=== PATIENT | female | born 1995 | race African-American/Black ===

== ENCOUNTER 2016-11-15 20:50 | Emergency (ER) | payer OTHER ==
[2016-11-15] MEDS ORDERED: Ondansetron INJ* 2 MG/ML VIAL IV ONE (21:42)
[2016-11-15] MEDS ORDERED: Pantoprazole IV* 40 MG IV ONE (21:42)
[2016-11-15] MEDS ORDERED: NS 0.9% 1000 ML* 2,000 ML IV ONE (21:42)
[2016-11-15 22:22] LABS: ALT 20 U/L (7-52); AST 17 U/L (13-39); Albumin 5.1 g/dL (3.2-5.2); Alkaline Phosphatase 88 U/L (34-104); Amylase 71 U/L (29-103); Anion Gap 8 mmol/L (2-11); BUN/Creatinine Ratio 15.1 (8-20); Blood Urea Nitrogen 11 mg/dL (6-24); C Reactive Protein < 1.00 mg/L (< 5.00); CO2 Carbon Dioxide 25 mmol/L (22-32); Calcium 10.1 mg/dL (8.6-10.3); Chloride 103 mmol/L (101-111); EGFR African American 130.7 (>60); EGFR Non-African American 101.6 (>60); Globulin 2.8 g/dL (2-4); Glucose 102 mg/dL (70-100); Lipase 20 U/L (11.0-82.0); Potassium 3.8 mmol/L (3.5-5.0); Sodium 136 mmol/L (133-145); Total Protein 7.9 g/dL (6.4-8.9)
[2016-11-15 22:39] LABS: Hematocrit 43 % (35-47); Mean Corpuscular HGB Conc 32 g/dl (31-36); Mean Corpuscular Hemoglobin 28 pg (27-31); Mean Corpuscular Volume 88 fL (80-97); Mean Platelet Volume 9 um3 (7.4-10.4); Red Blood Count 4.95 10^6/ul (4.0-5.4); Red Cell Distribution Width 15 % (10.5-15); White Blood Count 13.7 10^3/ul (3.5-10.8)
[2016-11-15 23:39] LABS: Urine Bilirubin Negative (Negative); Urine Glucose Negative (Negative); Urine Nitrite Negative (Negative)
[2016-11-16] MEDS ORDERED: Ondansetron ODT TAB* 4 MG PO ONE ×2 (00:09→00:12)
[2016-11-16 00:56] VITALS: BP 122/60
--- NOTE | 2016-11-16 01:13 | ED ---
Mark Gaffney Rebecca, scribed for Isaac Curtis MD on 11/15/16 at 2140 . Abdominal Pain/Female - HPI Summary HPI Summary: Pt is a 21 y/o F who presents to ED c/o diffuse abdominal pain. Sx began suddenly at 1700 today and is diffuse, particularly in the umbilical region. Pain is currently moderate, ranked 6/10 and characterized as cramping. Sx aggravated by movement including movement of the car while en route to [facility] and alleviated by nothing. Additionally c/o vomiting with episodes about every 15-20 minutes. Emesis contains streaks of blood and was previously food product and is now yellow. Denies diarrhea, fever, chills and rhinorrhea. No recent sick contact. Pt was in [facility] for 1.5 weeks in September of this summer. - History of Current Complaint Chief Complaint: EDAbdPain Stated Complaint: VOMITING Time Seen by Provider: 11/15/16 21:27 Hx Obtained From: Patient Onset/Duration: Sudden Onset, Still Present Severity Currently: Moderate Pain Intensity: 6 Pain Scale Used: 0-10 Numeric Location: Diffuse Character: Cramping Aggravating Factor(s): Movement Alleviating Factor(s): Nothing Associated Signs and Symptoms: Positive: Vomiting - with streaks of emesis. Negative: Fever, Diarrhea Allergies/Adverse Reactions: Allergies Allergy/AdvReac Type Severity Reaction Status Date / Time No Known Allergies Allergy Verified 11/15/16 20:53 PMH/Surg Hx/FS Hx/Imm Hx Previously Healthy: Yes Cardiovascular History: Denies: Hx Hypertension Respiratory History: Denies: Hx Asthma Infectious Disease History: No Infectious Disease History: Denies: Traveled Outside the [place] in Last 30 Days - Family History Known Family History: Positive: Hypertension Negative: Diabetes - Social History Occupation: Student Lives: Dormitory/Roommates Alcohol Use: None Substance Use Type: Reports: None Smoking Status (MU): Never Smoked Tobacco Review of Systems Negative: Fever, Chills Negative: Nasal Discharge Positive: Abdominal Pain, Vomiting. Negative: Diarrhea All Other Systems Reviewed And Are Negative: Yes Physical Exam - Summary Physical Exam Summary: The patient is well-nourished and uncomfortable. The skin is warm and dry and skin color reflects adequate perfusion. She has good skin turgor. HEENT: The head is normocephalic and atraumatic. The pupils are equal and reactive. The conjunctivae are clear and without drainage. Nares are patent and without drainage. Mouth reveals slightly dry oral mucous membranes and the throat is without erythema and exudate. The external ears are intact. The ear canals are patent and without drainage. The tympanic membranes are intact. Neck is supple with full range of motion and non-tender. Respiratory: Chest is non-tender. Lungs are clear to auscultation and breath sounds are symmetrical and equal. Cardiovascular: Hear is regular rhythm and tachycardic. There is no murmur or rub auscultated. There is no peripheral edema and pulses are symmetrical and equal. Abdomen: The abdomen is soft with generalized tenderness but no localized pain. She exhibits no guarding and no rebound. There are normal bowel sounds heard in all four quadrants and there is no organomegaly palpated. Musculoskeletal: There is no back pain noted. Extremities are non-tender with full range of motion. There is good capillary refill. There is no peripheral edema or calf tenderness elicited. Neurological: Patient is alert and oriented to person, place and time. The patient has symmetrical motor strength in all four extremities. Psychiatric: The patient has an appropriate affect and does not exhibit any anxiety or depression. Triage Information Reviewed: Yes Vital Signs On Initial Exam: Initial Vitals Temp Pulse Resp BP Pulse Ox 98.3 F 96 16 136/75 98 11/15/16 20:54 11/15/16 20:54 11/15/16 20:54 11/15/16 20:54 11/15/16 20:54 Vital Signs Reviewed: Yes - Stanley Coma Scale Coma Scale Total: 15 Diagnostics - Vital Signs Vital Signs Temp Pulse Resp BP Pulse Ox 11/15/16 21:04 86 100 11/15/16 21:03 125/69 11/15/16 20:54 98.3 F 96 16 136/75 98 - Laboratory Lab Results: Lab Results 11/15/16 11/15/16 11/15/16 Range/Units 21:57 21:57 21:57 WBC 13.7 H (3.5-10.8) 10^3/ul RBC 4.95 (4.0-5.4) 10^6/ul Hgb 14.0 (12.0-16.0) g/dl Hct 43 (35-47) % MCV 88 (80-97) fL MCH 28 (27-31) pg MCHC 32 (31-36) g/dl RDW 15 (10.5-15) % Plt Count 230 (150-450) 10^3/ul MPV 9 (7.4-10.4) um3 Neut % (Auto) 86.1 H (38-83) % Lymph % (Auto) 8.9 L (25-47) % Pitt % (Auto) 4.8 (1-9) % Eos % (Auto) 0.1 (0-6) % Baso % (Auto) 0.1 (0-2) % Absolute Neuts (auto) 11.8 H (1.5-7.7) 10^3/ul Absolute Lymphs (auto) 1.2 (1.0-4.8) 10^3/ul Absolute Monos (auto) 0.7 (0-0.8) 10^3/ul Absolute Eos (auto) 0 (0-0.6) 10^3/ul Absolute Basos (auto) 0 (0-0.2) 10^3/ul Absolute Nucleated RBC 0.01 10^3/ul Nucleated RBC % 0 Sodium 136 (133-145) mmol/L Potassium 3.8 (3.5-5.0) mmol/L Chloride 103 (101-111) mmol/L Carbon Dioxide 25 (22-32) mmol/L Anion Gap 8 (2-11) mmol/L BUN 11 (6-24) mg/dL Creatinine 0.73 (0.51-0.95) mg/dL Est GFR ( Amer) 130.7 (>60) Est GFR (Non-Af Amer) 101.6 (>60) BUN/Creatinine Ratio 15.1 (8-20) Glucose 102 H (70-100) mg/dL Lactic Acid 1.2 (0.5-2.0) mmol/L Calcium 10.1 (8.6-10.3) mg/dL Total Bilirubin 0.70 (0.2-1.0) mg/dL AST 17 (13-39) U/L ALT 20 (7-52) U/L Alkaline Phosphatase 88 (34-104) U/L C-Reactive Protein < 1.00 (< 5.00) mg/L Total Protein 7.9 (6.4-8.9) g/dL Albumin 5.1 (3.2-5.2) g/dL Globulin 2.8 (2-4) g/dL Albumin/Globulin Ratio 1.8 (1-3) Amylase 71 (29-103) U/L Lipase 20 (11.0-82.0) U/L Beta HCG, Quant 0.86 mIU/mL Urine Color Urine Appearance Urine pH (5-9) Ur Specific Lindstrom (1.010-1.030) Urine Protein (Negative) Urine Ketones (Negative) Urine Blood (Negative) Urine Nitrate (Negative) Urine Bilirubin (Negative) Urine Urobilinogen (Negative) Ur Leukocyte Esterase (Negative) Urine Glucose (Negative) Urine Ascorbic Acid (Negative) 11/15/16 Range/Units 23:28 WBC (3.5-10.8) 10^3/ul RBC (4.0-5.4) 10^6/ul Hgb (12.0-16.0) g/dl Hct (35-47) % MCV (80-97) fL MCH (27-31) pg MCHC (31-36) g/dl RDW (10.5-15) % Plt Count (150-450) 10^3/ul MPV (7.4-10.4) um3 Neut % (Auto) (38-83) % Lymph % (Auto) (25-47) % Pitt % (Auto) (1-9) % Eos % (Auto) (0-6) % Baso % (Auto) (0-2) % Absolute Neuts (auto) (1.5-7.7) 10^3/ul Absolute Lymphs (auto) (1.0-4.8) 10^3/ul Absolute Monos (auto) (0-0.8) 10^3/ul Absolute Eos (auto) (0-0.6) 10^3/ul Absolute Basos (auto) (0-0.2) 10^3/ul Absolute Nucleated RBC 10^3/ul Nucleated RBC % Sodium (133-145) mmol/L Potassium (3.5-5.0) mmol/L Chloride (101-111) mmol/L Carbon Dioxide (22-32) mmol/L Anion Gap (2-11) mmol/L BUN (6-24) mg/dL Creatinine (0.51-0.95) mg/dL Est GFR ( Amer) (>60) Est GFR (Non-Af Amer) (>60) BUN/Creatinine Ratio (8-20) Glucose (70-100) mg/dL Lactic Acid (0.5-2.0) mmol/L Calcium (8.6-10.3) mg/dL Total Bilirubin (0.2-1.0) mg/dL AST (13-39) U/L ALT (7-52) U/L Alkaline Phosphatase (34-104) U/L C-Reactive Protein (< 5.00) mg/L Total Protein (6.4-8.9) g/dL Albumin (3.2-5.2) g/dL Globulin (2-4) g/dL Albumin/Globulin Ratio (1-3) Amylase (29-103) U/L Lipase (11.0-82.0) U/L Beta HCG, Quant mIU/mL Urine Color Yellow Urine Appearance Clear Urine pH 6.0 (5-9) Ur Specific Lindstrom 1.028 (1.010-1.030) Urine Protein Negative (Negative) Urine Ketones 2+ H (Negative) Urine Blood Negative (Negative) Urine Nitrate Negative (Negative) Urine Bilirubin Negative (Negative) Urine Urobilinogen Negative (Negative) Ur Leukocyte Esterase Negative (Negative) Urine Glucose Negative (Negative) Urine Ascorbic Acid * H (Negative) Result Diagrams: 11/15/16 21:57 11/15/16 21:57 Lab Statement: Any lab studies that have been ordered have been reviewed, and results considered in the medical decision making process. Re-Evaluation - Re-Evaluation First Eval Re-Evaluation Time: 00:02 Change: Improved Comment: Pt is feeling significantly better. She now has no nausea and no abdominal pain and will test PO. Abdominal Pain Fem Course/Dx - Course Course Of Treatment: Pt is a 21 y/o F who presents to ED c/o diffuse abdominal pain. Sx began suddenly at 1700 today and is diffuse, particularly in the umbilical region. Pain is currently moderate, ranked 6/10 and characterized as cramping. Sx aggravated by movement including movement of the car while en route to [facility] and alleviated by nothing. Additionally c/o vomiting with episodes about every 15-20 minutes. Emesis contains streaks of blood and was previously food product and is now yellow. Denies diarrhea, fever, chills and rhinorrhea. No recent sick contact. Pt was in [place] for 1.5 weeks in September of this summer. In the ED course, pt received Zofran and Prrotonix and fluids which improved sx. Pt will be D/C to home with Dx of gastritis, Rx for Zofran and a follow up with her PCP. She understands and agrees. Elevated BP noted and advised to f/u. - Diagnoses Differential Diagnosis: Positive: Pancreatitis, Urinary Tract Infection, Other - dehydration, gastritis, food poisoning Provider Diagnoses: Gastritis Discharge - Discharge Plan Condition: Stable Disposition: HOME Prescriptions: Ondansetron ODT TAB* [Zofran 4 MG Odt TAB*] 4 mg PO Q8H PRN #20 tab.odt PRN Reason: nausea Patient Education Materials: Gastritis (ED), Clear Liquid Diet (ED) Referrals: [facility] [Primary Care Provider] - 3 Days (If symptoms have not improved, follow up with Bill in the next 3 days. ) Additional Instructions: Clear liquids for the next 24 hours. The documentation as recorded by the Mark sanchez Rebecca accurately reflects the service I personally performed and the decisions made by , Isaca Curtis MD.
== END 2016-11-16 01:01 | disposition home or self-care (01) ==
LOC: ED 20:50
DX: K29.70 Gastritis, unspecified, without bleeding (principal)
CPT/HCPCS: 36415; 80053; 81003; 82150; 83605; 83690; 84702; 85025; 86140; 96360; 96374; 96375; 99283; A9270-GY; J2405